=== PATIENT | male | born 1955 | race African-American/Black ===

== ENCOUNTER 2019-01-17 07:30 | Outpatient (RCR) | payer OTHER, SELFPAY ==
--- NOTE | 2019-01-11 13:04 | HP.PTEVAL ---
Patient's Visit Information LISA GALVAN is a 63 year old M referred to Physical Therapy by Rose Mary Wilson DPM with a diagnosis of lateral midfoot sprain. Date of Evaluation: 01/11/19 Physical Therapist: Willian Medina PT, ATC - Visit Plan Frequency: 1x/Week Duration: 2 Weeks Plan: Issue and instruct of HEP of L LE strengthening, stretching, and balance acivity - Subjective Findings: Pt reports his L foot has been sore for 4 years now. Pt reports the pain is intermittent in nature. Pt reports this episode started around 3 weeks ago. Pt reports he actually has pain in both of his feet and ankles. Pt reports the pain has an insidious onset in nature. Pt reports the pain increases with prolonged standing. Pt reports sometimes ibuprohen helps with the pain. Pt reports he has sleep difficulty secondary to pain. Pt reports he received a cortisone injection into his L great gonzalez recently so the pain is much better now. Pt has been wearing a cam boot since december 29 which also helps with the pain. 0/10 pain at rest, 10/10 prior to the injection. - Pain L ankle/foot Pain Intensity (Out of 10): 0 Pain Intensity Range: 10 - Objective Neuro: B LE sensation is WNL to light touch. B patellar reflex= 2/3. Palpation: No pain with palpation. ROM: R ankle DF= 5, PF= 60 degrees; L ankle DF= 7, PF= 60. MMT: B LE's are grossly 5/5 throughout - Goals Goal 1:: I with HEP in 2 visits Goal Time Frame: 2 Weeks - Rehabilitation Potential Physical Therapy Diagnosis: Pt has L foot pain intermittently secondary to midfoot sprain Rehabilitation Potential: Good - Anticipated Interventions Patient/Client Instruction: Educate patient on: Condition, Plan of Care For the Purpose of:: To improve self management Therapeutic Exercise to Include: Strength training, Balance training, Flexibilty training, Active ROM For the Purpose of:: To decrease pain, To increase ROM, To improve muscle performance and motor function Thank you for the opportunity to evaluate your patient. For Medicare and Medicare HMO plans, please review the plan of care and approve it. It will need to be FAXED BACK to us at [phone] for Medicare purposes. For Medicare only, by signing this I certify the plan of care. Please let me know if there are questions or concerns regarding this plan of care. Physician Signature: Date:
--- NOTE | 2019-04-19 15:57 | HP.PTDCNRP_ITS ---
HP - Discharge Summary (1) - Patient Information LISA GALVAN was seen in my office for initial evaluation on 01/11/19. The following Plan of Care was established for this patient: Initial Frequency: 1x/Week Initial Duration: 2 Weeks - Anticipated Interventions Patient/Client Instruction: Educate patient on: Condition, Plan of Care For the Purpose of:: To improve self management Therapeutic Exercise to Include: Strength training, Balance training, Flexibilty training, Active ROM For the Purpose of:: To decrease pain, To increase ROM, To improve muscle per formance and motor function This patient was last seen in our office . Pertinent comments regarding their Physical therapy will appear below: Pt was treated for 1 PT visit for his foot sprain through the date of 01/17/19. Pt has not returned through todays date and is discontinued at this time. At this point I will be discontinuing this patient from physical therapy. I would be happy to see this patient again in the future if found appropriate by the physician. Thank you! Willian Medina, PT, ATC
== END 2019-01-17 19:00 | disposition home or self-care (01) ==
LOC: PT 07:30
PROVIDERS: Family Provider Internal Medicine; PCP Internal Medicine; Referring Provider Podiatrist; Visit Provider Podiatrist
DX: S93.692D Other sprain of left foot, subsequent encounter (principal); M20.5X2 Other deformities of toe(s) (acquired), left foot; M20.5X1 Other deformities of toe(s) (acquired), right foot
CPT/HCPCS: 97161; 97530

== ENCOUNTER → 2019-03-19 | Outpatient (CLI) | payer OTHER, SELFPAY ==
--- NOTE | 2019-03-19 09:57 | RAD_ITS ---
STUDY: X-RAY CHEST REASON FOR EXAM: Male, 63 years old. Arthritis TECHNIQUE: PA and lateral COMPARISON: None. FINDINGS: Nonspecific interstitial thickening more severe in the mid and lower lung zones.. There is also subtle nodular opacity in the right upper lobe. There is no demonstrated pleural abnormality. Mild prominence of the cardiac silhouette. Normal mediastinum and ame. Normal visualized pulmonary arteries. Normal visualized aortic arch and descending thoracic aorta. Normal visualized thoracic spine. Normal visualized ribs, clavicles, and shoulders. There is no demonstrated abnormality of the visualized soft tissue structures of the upper abdomen. RAD/Chest PA and Lateral IMPRESSION: Mild nonspecific interstitial thickening. Subtle nodular density in the right upper lobe of uncertain significance. CT would be helpful for further evaluation Electronically Signed: Mac Mayers MD at 16:51 EDT , Service support ,
[2019-03-19 12:51] LABS: Erythrocyte Sedimentation Rate 13 mm/hr (0-20)
[2019-03-19 12:55] LABS: Absolute Lymphocyte Count 0.82 X10^3/uL (0.83-4.51); Absolute Neutrophil Count 3.8 X10^3/uL (2.0-7.7); Basophil% 1.7 % (0-1); Eosinophil# 0.46 X10^3/uL; Eosinophils% 7.8 % (0-5); Hematocrit 45.1 % (40-54); Lymphocyte # 0.82 X10^3/ul (4.0); Lymphocyte % 13.9 % (19-41); Mean Corp Hgb Conc 33.3 g/dL (32-36); Mean Corpuscular Hgb 28.8 pg (27.0-32.0); Mean Corpuscular Volume 86.6 fL (80-94); Mean Platelet Vol. 9.5 fl (6.2-12.0); Monocyte# 0.65 X10^3/uL; NRBC Flagged by Analyzer 0 % (0-5); Neutrophil # 3.77 X10^3/uL (2.7-7.7); Neutrophil % 63.9 % (47-70); Platelet Count 279 K/mm3 (150-450); RBC Distribution Width CV 13.5 % (11.6-14.6); RBC Distribution Width SD 42.5 fl (35.1-43.9); Red Blood Count 5.21 M/mm3 (4.6-6.2); White Blood Count 5.9 K/mm3 (4.4-11.0)
[2019-03-19 13:21] LABS: AST(SGOT) 22 U/L (15-37); Alanine Aminotransfer ALT/SGPT 34 U/L (16-61); Albumin, Serum 3.9 g/dL (3.2-5.0); Alkaline Phosphatase 89 U/L (45-117); Anion Gap 6 (5-15); BUN 10 mg/dL (7-18); BUN/Creat Ratio 7.8 RATIO (10-20); CRP < 2.90 mg/L (0.0-3.0); Calcium,Total 9.4 mg/dL (8.5-10.1); Chloride 105 mmol/L (98-107); Creatinine, Serum 1.29 mg/dL (0.70-1.30); EST Glomerular Filtration Rate 60 mL/min (>60); Est Glom Filt Rate - Afr Amer 72 mL/min (>60); Globulin 3.9 g/dL (2.2-4.2); Glucose 82 mg/dL (74-106); Protein, Total 7.8 g/dL (6.4-8.2); Rheumatoid Factor < 10.0 IU/mL (<15); Sodium Level 140 mmol/L (136-145)
[2019-03-19 13:59] LABS: Hepatitis B Surface Antibody Non-Reactive; Hepatitis B Surface Antigen Non-Reactive (Nonreactive); Hepatitis C Antibody Non-Reactive (Nonreactive)
[2019-03-21 03:06] LABS: Angiotensin Convert Enzyme 43 U/L (14-82)
[2019-03-21 09:41] LABS: ANTINUCLEAR ANTIBODIES DIRECT Negative (Negative)
[2019-03-21 17:02] LABS: CCP IgG Antibodies 5 units (0-19); Hepatitis B Core AB IgM Negative (Negative)
== END | disposition home or self-care (01) ==
LOC: MTLAB 09:56
PROVIDERS: Family Provider Internal Medicine; PCP Internal Medicine; Referring Provider Internal Medicine Rheumatology; Visit Provider Internal Medicine Rheumatology
DX: D86.86 Sarcoid arthropathy (principal); K21.9 Gastro-esophageal reflux disease without esophagitis; I10 Essential (primary) hypertension; E78.5 Hyperlipidemia, unspecified; E79.0 Hyperuricemia without signs of inflammatory arthritis and tophaceous disease; N20.0 Calculus of kidney
CPT/HCPCS: 36415; 71046; 80053; 82164; 85025; 85652; 86038; 86140; 86200; 86431; 86705; 86706; 86803; 87340

== ENCOUNTER → 2019-06-25 07:03 | Outpatient (CLI) | payer OTHER, SELFPAY ==
--- NOTE | 2019-06-25 07:08 | CT_ITS ---
STUDY: CT CHEST WITHOUT CONTRAST REASON FOR EXAM: Male, 63 years old. Right upper lobe nodules. History of sarcoidosis. RADIATION DOSAGE (If Supplied By Facility): CTDIvol = ( 18.04 ) mGy, DLP = ( 660.39 ) mGycm TECHNIQUE: Transaxial imaging was performed without the administration of intravenous contrast material. Multiplanar coronal and sagittal images were reformatted. Individualized dose optimization techniques were used for this CT. COMPARISON: Comparison is made with prior chest radiograph dated March 19, 2019. FINDINGS: Findings suggest some apical scarring bilaterally more prominent on the left side. There is a 5.6 mm noncalcified nodule in the medial right lung apex. Mild degree of bronchiectasis in the lower lobes. Mild degree of increased markings in the upper lobes more prominent on the right side suggestive of scarring. Calcified pleural plaques in both hemithoraces. Normal heart and pericardium. Calcified mediastinal lymph nodes. Calcified bilateral hilar adenopathy. Findings are in keeping with patient's history of sarcoidosis. Normal unenhanced pulmonary arteries. Normal aorta arch and descending thoracic aorta. There are mild degenerative changes of the thoracic spine. There is no demonstrated abnormality of the visualized upper abdomen. CT/Chest without Contrast IMPRESSION: Calcified bilateral hilar and mediastinal lymphadenopathy suggestive of a known diagnosis of sarcoidosis. Electronically Signed: Paul Glaser, at 14:27 EST , Service support ,
== END ==
PROVIDERS: Family Provider Internal Medicine; PCP Internal Medicine; Referring Provider Internal Medicine Rheumatology; Visit Provider Internal Medicine Rheumatology
DX: D86.86 Sarcoid arthropathy (principal); I10 Essential (primary) hypertension; K21.9 Gastro-esophageal reflux disease without esophagitis; E78.5 Hyperlipidemia, unspecified; N20.0 Calculus of kidney; Z79.899 Other long term (current) drug therapy
CPT/HCPCS: 71250

== ENCOUNTER 2022-06-22 14:28 | Emergency (ER) | payer MEDICARE, SELFPAY ==
[2022-06-22 14:28] VITALS: BP 160/89; PULSE 73; RESP 16; TEMP 36.3; O2SAT 99; BMI 33.2
--- NOTE | 2022-06-22 15:07 | NURSING ---
NO OLD EKGS
[2022-06-22 15:16] VITALS: PULSE 78; RESP 16; O2SAT 98; O2SAT 99
--- NOTE | 2022-06-22 15:30 | RAD_ITS ---
STUDY: X-RAY CHEST REASON FOR EXAM: Male, 66 years old. Chest pain TECHNIQUE: PA and lateral views of the chest. COMPARISON: Comparison is made with prior study dated 03/19/2019. FINDINGS: EKG electrodes are seen. Hyperinflation. There is no demonstrated pleural abnormality. Normal size heart. Normal mediastinum and ame. There is prominence of the pulmonary hilar arteries without peripheral pulmonary vascular congestion, suggesting pulmonary hypertension. There is atherosclerotic tortuosity of the aortic arch and descending thoracic aorta. Normal visualized thoracic spine. Normal visualized ribs, clavicles, and shoulders. There is no demonstrated abnormality of the visualized soft tissue structures of the upper abdomen. RAD/Chest PA and Lateral IMPRESSION: Hyperinflation. Prominence of the central pulmonary arteries. Electronically Signed: Paul Glaser MD at 15:46 EST ,
[2022-06-22 15:31] LABS: Absolute Lymphocyte Count 0.65 X10^3/uL (0.83-4.51); Basophil# 0.05 X10^3/uL; Basophil% 0.9 % (0-1); Eosinophils% 3.5 % (0-5); Hematocrit 42.2 % (40-54); Hemoglobin 14.3 g/dL (13.0-16.5); Lymphocyte # 0.65 X10^3/ul (0.83-4.51); Lymphocyte % 11.5 % (19-41); Mean Corp Hgb Conc 33.9 g/dL (32-36); Mean Corpuscular Hgb 30.8 pg (27.0-32.0); Mean Corpuscular Volume 90.8 fL (80-94); Mean Platelet Vol. 8.7 fl (6.2-12.0); Monocyte% 12.4 % (0-10); NRBC Flagged by Analyzer 0 % (0-5); Neutrophil # 4.03 X10^3/uL (2.7-7.7); Neutrophil % 71.3 % (47-70); Platelet Count 250 K/mm3 (150-450); RBC Distribution Width CV 13.7 % (11.6-14.6); RBC Distribution Width SD 45.5 fl (35.1-43.9); Red Blood Count 4.65 M/mm3 (4.6-6.2); White Blood Count 5.7 K/mm3 (4.4-11.0)
--- NOTE | 2022-06-22 15:40 | EDS_ITS ---
HPI History of Present Illness Chief Complaint: Chest Other Informant: patient Narrative Narrative: Patient is a 66-year-old male presenting with pleuritic chest pain. He has had left-sided pleuritic chest pain for the past few days. He notes when it first started 2 nights ago he took an omeprazole in the morning and it felt better. It was mild the following day and this morning however it worsened this afternoon. Patient notes he feels that he needs to burp. He denies any shortness of breath or difficulty breathing. Does have an intermittent cough but no recent URI symptoms. No fever or chills. Denies any swelling of his legs. Does have a history of GERD and takes antacids only as needed. He spoke with the nurse director of elementary education who recommend he come to the ER to make sure does not have a blood clot. Patient has a history of hypertension, hyperlipidemia, osteoarthritis and sarcoidosis. He is on methotrexate weekly for this. Prior Similar Symptoms: No CVD Risk Factors: Positive for Hypertension and Hypercholesterolemia PE Risk Factors: Negative for Recent Travel/Surgery, Recent Immobilization, Prior DVT or PE or OCP + Smoking + >/=35 PFSH PFSH Medical History HLD (hyperlipidemia) HTN (hypertension) Sarcoidosis Home Medications omeprazole 20 mg capsule,delayed release 20 mg PO BID #30 caps 06/22/22 [Rx Last Taken Unknown] Allergy/AdvReac Type Severity Reaction Status Date / Time No Known Allergies Allergy Verified 06/22/22 14:31 Social History Smoking Status: Never smoker ROS [facility] ED Constitutional Constitutional ED: Denies chills or fever(s) Eyes Eyes: Denies change in vision ENT ENT ED: Denies rhinorrhea or sore throat Cardiovascular Cardiovascular: Reports as per HPI and chest pain; Denies palpitations Respiratory/Chest Respiratory/Chest: Denies cough or dyspnea Gastrointestinal Gastrointestinal: Denies abdominal pain, nausea or vomiting Genitourinary Genitourinary ED: Denies dysuria or hematuria Musculoskeletal Musculoskeletal: Denies arthralgias or myalgias Integumentary Denies rash Neurologic Neurologic: Denies headache(s), paresthesias or weakness Psychiatric Psychiatric: Denies anxiety Hematologic/Lymphatic Hematologic/Lymphatic: Denies easy bleeding or easy bruising EXAM Physical Exam Const Vital Signs: 06/22/22 14:28 06/22/22 15:16 06/22/22 15:16 Temperature 97.3 F L Temperature Source Temporal Pulse Rate 73 78 Respiratory Rate 16 16 Respiratory Effort Blood Pressure 160/89 H Blood Pressure Mean 112 Pulse Ox 99 99 98 Oxygen Delivery Method Room Air Room Air Room Air 06/22/22 15:16 06/22/22 16:20 Temperature Temperature Source Pulse Rate 83 Respiratory Rate 14 Respiratory Effort Normal Non-Labored Blood Pressure Blood Pressure Mean Pulse Ox 94 Oxygen Delivery Method Room Air Positive well nourished and well developed General Appearance ED: well developed and NAD HEENT Reports moist mucous membranes normocephalic and atraumatic Eyes PERRL and EOMs intact bilaterally Neck no lymphadenopathy, supple and no JVD Chest Wall inspection of chest normal and palpation of chest normal Resp normal respiratory effort and clear to auscultation bilaterally Cardio regular rate, regular rhythm and no murmurs GI normal to inspection, nondistended, normoactive bowel sounds, soft to palpation and non-tender Back/Spine no CVA tenderness Extremity normal to inspection Neuro oriented x3 Sensorium / Orientation: awake Motor Exam: Negative for general weakness Psych mental status grossly normal Skin no rashes or lesions noted Heart Score History: Slightly/Non-Suspicious ECG: Normal Age: >/= 65 years Risk Factors: 1 or 2 Risk Factors Troponin: </= Normal Limit Score: 3 MDM MDM MDM Narrative Medical decision making narrative: Evaluate for cardiac chest pain for the past few days. Vital signs are significant only for mild hypertension. Pains previously been reduced with antacids. Patient peers nontoxic in no acute distress. His only risk factor for PE is age greater than 50. D-dimer is negative. High since he troponin is 4. Given the pains been going on for a couple days I think this makes ACS much less likely. Chest x-ray to read myself as well as radiology shows hyperinflation and prominence of the central pulmonary arteries. Patient is comfortable in the ER. Will be discharged home to follow-up outpatient. We will refill his omeprazole prescription in case this is referred GI symptoms. Discussed that it could also be pleurisy. Encouraged follow-up with primary care doctor for further cardiac evaluation. Patient verbalized agreement understand this plan. Discharged home in stable condition. Lab Data Attestation: I reviewed the patient's lab results. Labs: Laboratory Results - last 24 hr 06/22/22 06/22/22 06/22/22 15:20 15:20 15:20 WBC 5.7 RBC 4.65 Hgb 14.3 Hct 42.2 MCV 90.8 MCH 30.8 MCHC 33.9 RDW Std Deviation 45.5 H RDW Coeff of Yue 13.7 Plt Count 250 MPV 8.7 Immature Gran % (Auto) 0.400 Neut % (Auto) 71.3 H Lymph % (Auto) 11.5 L [place] % (Auto) 12.4 H Eos % (Auto) 3.5 Baso % (Auto) 0.9 Absolute Neuts (auto) 4.0 Absolute Lymphs (auto) 0.65 L Nucleated RBC % 0 D-Dimer Quant (PE/DVT) < 0.27 L Sodium 135 L Potassium 3.6 Chloride 100 Carbon Dioxide 27.0 Anion Gap 8 BUN 13 Creatinine 1.27 Estim Creat Clear Calc 57.22 Est GFR (MDRD) Af Amer 73 Est GFR (MDRD) Non-Af 60 BUN/Creatinine Ratio 10.2 Glucose 90 Calcium 9.3 Troponin I High Sens 4 Radiography Diagnostic Testing: Clinical Impression(s) from Imaging Studies Chest X-Ray 06/22/22 15:30 IMPRESSION: Hyperinflation. Prominence of the central pulmonary arteries. Electronically Signed: Paul Glaser MD at 15:46 EST Reading Location ID and State: [facility] / [place] , Service support , Rhythm Strip Rhythm Strip: Sinus Rhythm Rate: 78 Ectopy: None EKG Initial EKG: Attestation: I personally reviewed and interpreted this EKG as follows: Interpretation: Sinus Rhythm Comments: Normal sinus rhythm at a rate of 78 bpm First-degree AV block with a OH interval of 218 Normal axis Normal intervals Normal ST segments Discharge Plan Triage Chief Complaint: Chest Other ED Provider: Tiffanie Dykes Dx/Rx/DC Orders Clinical Impression: Pleuritic chest pain, Hypertension Instructions: ED Chest Pain, Uncertain Cause, ED Hypertension, Established Prescriptions: New omeprazole 20 mg capsule,delayed release(DR/EC) 20 mg PO BID Qty: 30 0RF Primary Care Provider: Simon Magallanes Referrals: Simon Magallanes MD [Primary Care Provider] - Disposition Disposition: Home, Self Care
[2022-06-22 15:43] LABS: D-Dimer Quantitative (DVT/PE) < 0.27 FEU/ug/m (0.27-0.49)
[2022-06-22 15:57] LABS: Anion Gap 8 (5-15); BUN 13 mg/dL (7-18); BUN/Creat Ratio 10.2 RATIO (10-20); Calcium,Total 9.3 mg/dL (8.5-10.1); Chloride 100 mmol/L (98-107); Creatinine, Serum 1.27 mg/dL (0.70-1.30); EST Glomerular Filtration Rate 60 mL/min (>60); Est Glom Filt Rate - Afr Amer 73 mL/min (>60); Estimated Creatinine Clearance 57.22 ml/min; Glucose 90 mg/dL (74-106); Potassium 3.6 mmol/L (3.5-5.1); Sodium Level 135 mmol/L (136-145); Troponin-I HS 4 pg/mL (3.0-78.0)
[2022-06-22 16:20] VITALS: PULSE 83; RESP 14; O2SAT 94
[2022-06-22 17:09] VITALS: BP 139/89; PULSE 82; RESP 16; O2SAT 95
== END 2022-06-22 17:14 | disposition home or self-care (01) ==
PROVIDERS: Emergency Provider Emergency Medicine; PCP Internal Medicine; Visit Provider Emergency Medicine
DX: R07.81 Pleurodynia (principal); E78.5 Hyperlipidemia, unspecified; I10 Essential (primary) hypertension
CPT/HCPCS: 71046; 80048; 84484; 85025; 85379; 93005; 99284

== ENCOUNTER 2022-12-29 14:28 | Emergency (ER) | payer MEDICARE, SELFPAY ==
[2022-12-29 14:29] VITALS: BP 152/86; PULSE 73; RESP 16; TEMP 36.4; O2SAT 98; BMI 34.4
--- NOTE | 2022-12-29 14:53 | VDLE_ITS ---
Reason For Study: Lt Leg Swelling RIGHT LEFT CFV is compressible, spontaneous, phasic, GSV is normal. competent and demonstrates normal CFV is compressible, spontaneous, phasic, augmentation. competent, and demonstrates normal Procedure augmentation. This is a venous duplex using B-mode, color FV is compressible, spontaneous, phasic, flow and spectral Doppler. competent and demonstrates normal Exam performed portable in ED. augmentation. The exam was diagnostic. POP V is compressible, spontaneous, phasic, A preliminary report was called and/or faxed competent and demonstrates normal to KATHY - ED RN. augmentation. T/P Trunk is compressible. PTV is compressible. LT PerV is compressible. Edema noted in Lt Mid and Distal calf. VL/Venous Duplex US, Unilateral Interpretation Summary There is no evidence of left lower extremity deep vein thrombosis. Left great s aphenous vein appears patent and compressible segmentally. Left mid calf edema noted Normal flow patterns right common femoral vein Ordering Physician: Benton Miguel Referring Physician: Simon Magallanes M.D. Performed By: Dilip Miranda RVT
--- NOTE | 2022-12-29 15:21 | ED.VIS.LOWEX ---
HPI History of Present Illness HPI Narrative: Patient presents with concern for DVT to his left leg. Patient states she has fallen 3 times in the past 2 weeks. Patient states he is fallen each time onto the anterior aspect of his left proximal lower leg. Patient states the area has gotten more swollen in the last 2 weeks. Patient states it has been waxing and waning. Patient states nothing makes it better nothing makes it worse. Patient states he did recently fly from [facility]. Patient denies any chest pain or shortness of breath. Patient states he went to an urgent care and was referred here for possible DVT. Chief Complaint: Lower Extremity Injury Informant: patient Onset/Context/Timing Onset: Weeks (2) Context: Gradual Onset Timing: Waxes and wanes Quality of Pain: Dull Location: Left lower leg Worsened by: Nothing Relieved by: Nothing Associated Symptoms Associated Symptoms: Negative for Parasthesia, Weakness or Loss of Funtion [facility] Medical History HLD (hyperlipidemia) HTN (hypertension) Sarcoidosis Home Medications omeprazole 20 mg capsule,delayed release 20 mg PO BID #30 caps 06/22/22 [Rx Last Taken Unknown] Allergy/AdvReac Type Severity Reaction Status Date / Time No Known Allergies Allergy Verified 12/29/22 14:28 Surgical History no surgical history no surgical history Social History Smoking Status: Never smoker ROS ROS ED Constitutional Constitutional ED: Denies chills or fever(s) Eyes Eyes: Denies blurry vision or change in vision ENT ENT ED: Denies rhinorrhea or sore throat Cardiovascular Cardiovascular: Denies chest pain or palpitations Respiratory/Chest Respiratory/Chest: Denies cough or dyspnea Gastrointestinal Gastrointestinal: Denies nausea or vomiting Genitourinary Genitourinary ED: Denies dysuria or hematuria Musculoskeletal Musculoskeletal: Reports back pain; Denies neck pain Integumentary Denies abscess or rash Neurologic Neurologic: Denies headache(s) or weakness Allergic/Immunologic Allergic/Immunologic ED: Denies mouth swelling or urticaria EXAM Physical Exam Const Vital Signs: 12/29/22 14:29 Temperature 97.6 F L Temperature Source Temporal Pulse Rate 73 Respiratory Rate 16 Blood Pressure 152/86 H Blood Pressure Mean 108 Pulse Ox 98 Oxygen Delivery Method Room Air Positive well nourished and well developed General Appearance ED: well developed and NAD HEENT Reports moist mucous membranes Extremity Extremity Narrative: There is tenderness and edema over the left lower leg. There is full range of motion of the left knee and left ankle. Pedal pulses are equal bilaterally. There is no deformity noted. Strength is 5/5 bilaterally in the lower extremities. There are no sensory deficits noted. Neuro oriented x3, CN's II-XII intact bilaterally, moves all extremities and no sensory deficits noted Sensorium / Orientation: alert Motor Exam: strength 5/5 throughout Skin no wounds MDM MDM MDM Narrative Medical decision making narrative: Differential diagnosis includes DVT and contusion. Venous duplex of the left lower extremity will be obtained to assess for DVT. Radiography Diagnostic Testing: Venous duplex of the left lower extremity was obtained. There is no evidence of DVT. Treatment and Re-Evaluation Narrative: Patient was advised of his findings. Patient was advised that this is most likely contusion from his falls. Patient was instructed to ice and elevate the left lower extremity. Patient was instructed take Tylenol or ibuprofen as needed for pain. Patient was instructed to follow-up with his primary care physician in 5 to 7 days. Patient understood and was agreeable with the plan. All questions were answered. Discharge Plan Triage Chief Complaint: Lower Extremity Injury ED Provider: Benton Miguel Dx/Rx/DC Orders Clinical Impression: Contusion of left lower leg, initial encounter, Fall Instructions: ED Contusion, Lower Extremity Prescriptions: No Action omeprazole 20 mg capsule,delayed release(DR/EC) 20 mg PO BID Qty: 30 0RF Primary Care Provider: Simon Magallanes Referrals: Simon Magallanes MD [Primary Care Provider] - 5-7 Days Activity Restrictions/Additional Instructions: You may take Tylenol every 6 hours as needed for pain. You may also take ibuprofen 400 mg every 6 hours as needed for pain. Ice and elevate the left leg. Disposition Disposition: Home, Self Care
--- NOTE | 2022-12-29 16:05 | ED.RN ---
DVT STUDY NEGATIVE. DR DAVIS
[2022-12-29 16:24] VITALS: BP 124/67; PULSE 71; RESP 15; O2SAT 97
== END 2022-12-29 16:25 | disposition home or self-care (01) ==
PROVIDERS: Emergency Provider Emergency Medicine; PCP Internal Medicine; Visit Provider Emergency Medicine
DX: S80.12XA Contusion of left lower leg, initial encounter (principal); I10 Essential (primary) hypertension; E78.5 Hyperlipidemia, unspecified; M79.89 Other specified soft tissue disorders; M54.9 Dorsalgia, unspecified; W19.XXXA Unspecified fall, initial encounter
CPT/HCPCS: 93971; 99282